=== PATIENT | male | born 1945 | race Caucasian/White ===

== ENCOUNTER 2022-09-11 09:30 | Outpatient (RCR) | payer MEDICARE, BC, SELFPAY | END 2022-10-28 12:07 | disposition home or self-care (01) | PROVIDERS: PCP Family Medicine; Visit Provider Family Medicine | DX: S79.912D Unspecified injury of left hip, subsequent encounter (principal); Z51.89 Encounter for other specified aftercare | CPT/HCPCS: 97110; 97140; 97162; 97164 ==

== ENCOUNTER 2025-03-18 10:17 | Outpatient (CLI) | payer MEDICARE, BC, SELFPAY ==
--- NOTE | 2025-03-18 11:50 | P.ANES_ITS ---
Anesthesia Charges Start Date/Time Anesthesia Start Date: 03/18/25 Anesthesia Start Time: 11:16 Stop Date/Time Anesthesia Stop Date: 03/18/25 Anesthesia Stop Time: 11:48 Coding CPT Codes CPT Codes: ANES LWR INTST NDSC NOS - [id number] ([id number]) P3 - PATIENT W/SEVERE SYS DISEASE, QK - STUNT WOMAN 2-4 CNCRNT ANES PROC, QX - HOSPITAL ACCOUNT LIAISON SVC W/ MD MED DIRECTION
--- NOTE | 2025-03-18 11:50 | W.ANESCHARGE ---
Anesthesia Charges Start Date/Time Anesthesia Start Date: 03/18/25 Anesthesia Start Time: 11:16 Stop Date/Time Anesthesia Stop Date: 03/18/25 Anesthesia Stop Time: 11:48 Coding CPT Codes CPT Codes: ANES LWR INTST NDSC NOS - [id number] ([id number]) P3 - PATIENT W/SEVERE SYS DISEASE, QK - HAM FACER 2-4 CNCRNT ANES PROC, QX - SATELLITE TV TECHNICIAN SVC W/ MD MED DIRECTION
--- NOTE | 2025-03-18 12:32 | W.ANESCHARGE ---
Anesthesia Charges Start Date/Time Anesthesia Start Date: 03/18/25 Anesthesia Start Time: 11:16 Stop Date/Time Anesthesia Stop Date: 03/18/25 Anesthesia Stop Time: 11:48 Summary Extremes of Age - Over 70 or under 1: MDA Coding CPT Codes CPT Codes: ANES LWR INTST NDSC NOS - [id number] ([id number]) QK - SCALE RECLAMATION TENDER 2-4 CNCRNT ANES PROC, QX - [place] MAKEUP ARTIST SVC W/ MD MED DIRECTION, P3 - PATIENT W/SEVERE SYS DISEASE Additional Codes: Summary - Extremes of Age - Over 70 or under 1: MDA ([id number])
== END 2025-03-18 10:18 | disposition home or self-care (01) ==
LOC: OP CLINIC 10:21
PROVIDERS: PCP Family Medicine; Visit Provider Internal Medicine Gastroenterology
DX: Z12.11 Encounter for screening for malignant neoplasm of colon (principal); Z86.0100 Personal history of colon polyps, unspecified; D12.3 Benign neoplasm of transverse colon; D12.4 Benign neoplasm of descending colon; D12.8 Benign neoplasm of rectum
CPT/HCPCS: 00811; 45380; 45385; 88305; 99100; J2704